=== PATIENT | male | born 1950 | race Hispanic/Latino ===

== ENCOUNTER 2017-04-04 07:57 | Emergency (ER) | payer OTHER ==
[2017-04-04] MEDS ORDERED: IBUPROFEN 200 MG TAB PO ONE (08:02)
[2017-04-04] MEDS ORDERED: CYCLOBENZAPRINE HCL 10 MG TAB PO ONE (08:02)
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
[2017-04-04 08:11] VITALS: TEMP 97.3
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
[2017-04-04 09:05] VITALS: BP 138/84; O2SAT 96
== END 2017-04-04 08:59 | disposition home or self-care (01) ==
LOC: ER 07:57
DX: S16.1XXA Strain of muscle, fascia and tendon at neck level, initial encounter (principal); S00.03XA Contusion of scalp, initial encounter; V43.62XA Car passenger injured in collision with other type car in traffic accident, initial encounter; Y92.410 Unspecified street and highway as the place of occurrence of the external cause

== ENCOUNTER 2020-03-26 11:46 | Emergency (ER) | payer MEDICARE, OTHER ==
--- NOTE | 2020-03-26 12:56 | RAD ---
EXAM DESCRIPTION: Chest,1 View CLINICAL HISTORY: 69 years Male SOB, COVID exposure COMPARISON: None TECHNIQUE: AP view of the chest was obtained. FINDINGS: Cardiac silhouette is mildly enlarged. Central vessels are mildly increased. Patient is lordotic in positioning. Infrahilar airspace opacities bilaterally left greater than right. No pleural effusions bilaterally. No pneumothorax. IMPRESSION: Mildly enlarged heart with associated central congestion. Infiltrate and atelectatic change infrahilar regions bilaterally left greater than right. Electronically signed by: Ynes Li MD 03/26/2020 12:55 PM CDT
[2020-03-26 13:18] VITALS: TEMP 98
--- NOTE | 2020-03-26 13:34 | ED.PDOC ---
History of Present Illness - General Chief Complaint: Respiratory Problem Stated Complaint: Cough, SOB, ASHRAF, chest tightness Time Seen by Provider: 03/26/20 12:06 Source: patient, RN notes reviewed, Vital Signs reviewed, family Exam Limitations: language barrier, other - Son is a patient in the emergency department in the room, he was able to interpret - History of Present Illness Comments: This is a 69-year-old male with history of hypertension, colon cancer, CAD with stents, presenting to the emergency department with approximately 12 days of intermittent fever, body aches, decreased appetite. He reports mild cough and shortness of breath. No chest pain. No vomiting/diarrhea. He lives with his son, who recently tested positive for COVID-19 in the emergency department. He has not been tested for the symptoms. He has not taken anything for his symptoms. Allergies/Adverse Reactions: Allergies NO KNOWN ALLERGY Allergy (Verified 03/26/20 12:31) Home Medications: Ambulatory Orders Cyclobenzaprine HCl 5 mg PO Q8H PRN #15 tab 04/04/17 Ibuprofen 800 mg PO Q8H PRN #20 tab 04/04/17 Albuterol Inhaler [Ventolin Hfa Inhaler] 2 - 4 puff IN Q4H PRN #1 inh 03/26/20 Ondansetron Odt [Zofran ODT] 4 - 8 mg PO Q30MIN PRN #12 tab 03/26/20 guaiFENesin W/CODEINE LIQ [Robitussin AC] 5 - 10 ml PO Q6H PRN #120 ml 03/26/20 Review of Systems - Review of Systems Constitutional: States: chills, fever EENTM: Denies: ear pain, nose pain, throat pain, mouth pain Respiratory: States: cough, short of breath. Denies: wheezing Cardiology: Denies: chest pain, edema, syncope Gastrointestinal/Abdominal: Denies: abdominal pain, diarrhea, nausea, vomiting Genitourinary: Denies: dysuria, hematuria Musculoskeletal: Denies: joint pain, joint swelling, muscle stiffness Skin: Denies: change in color, lumps, rash Neurological: Denies: headache, numbness, tingling, weakness Endocrine: States: no symptoms reported Hematologic/Lymphatic: States: no symptoms reported Past Medical History (General) - Patient Medical History Hx Seizures: No Hx Stroke: No Hx Dementia: No Hx Asthma: No Hx of COPD: No Hx Cardiac Disorders: Yes - stents Hx Congestive Heart Failure: No Hx Pacemaker: No Hx Hypertension: Yes Hx Diabetes: No Hx Gastroesophageal Reflux: Yes Hx Cancer: Yes - colon Surgical History: cancer surgery, other - Vaccination History Hx Influenza Vaccination: No - Social History Hx Tobacco Use: No Hx Alcohol Use: Yes Hx Substance Use: No Hx Substance Use Treatment: No Hx Depression: No - Female History Patient is a Female of Child Bearing Age (10 -59 yrs old): No Patient : No Family Medical History - Family History Mother Family History: Unknown Physical Exam - Physical Exam General Appearance: Alert, Comfortable ENT Exam: normal ENT inspection, hearing grossly normal Neck: non-tender, full range of motion, supple, normal inspection Respiratory: chest non-tender, lungs clear, normal breath sounds, no respiratory distress Cardiovascular/Chest: normal peripheral pulses, regular rate, rhythm, no edema, no gallop, no JVD, no murmur Gastrointestinal/Abdominal: non tender, soft Extremity: normal range of motion, non-tender, normal inspection Neurologic: no motor/sensory deficits, alert, normal mood/affect, oriented x 3 Skin Exam: normal color, warm/dry Progress - Progress Progress: 03/26/20 14:35 Rechecked. Discussed lab and x-ray findings. His O2 sats remained normal, no respiratory distress. No indication for admission at this time. Will treat symptomatically. Strict warnings given to patient and son to return the emergency immediately for worsening shortness of breath, changes in mental status, intractable vomiting, or any other concerns DDx: COVID-19, pneumonia, ACS, CHF, MDM: Patient presenting with fever, poor appetite, chest pain, shortness of breath. He has had close home contact with known COVID-19 disease. He tested positive for COVID-19 today. His labs today are reassuring, O2 sats are normal chest x- ray is clear. No indication for admission at this time. Will discharge home with symptom control. I provided a prescription for a pulse oximeter for him to use at home. Recommended he return to emergency room for sats less than 90%, worsening shortness of breath, changes in mental status, intractable vomiting, or any other concerns. Bill Tesfaye DO [facility] #559 - Results/Orders Results/Orders: 03/26/20 12:30 EKG STAT Pulse Ox, Continuous Monitoring STAT Laboratory Results - last 24 hr 03/26/20 03/26/20 03/26/20 12:40 12:40 12:40 WBC RBC Hgb Hct MCV MCH MCHC RDW Plt Count MPV Absolute Neuts (auto) Absolute Lymphs (auto) Absolute Monos (auto) Absolute Eos (auto) Absolute Basos (auto) Neutrophils % Lymphocytes % Monocytes % Eosinophils % Basophils % PTT (SP) 28.1 D-Dimer, Quantitative 1340.0 H* Sodium 133 L Potassium 3.8 Chloride 95 L Carbon Dioxide 25 Anion Gap 16.8 BUN 14 Creatinine 0.83 BUN/Creatinine Ratio 16.9 Random Glucose 110 H Serum Osmolality 267.5 L Calcium 8.8 Total Bilirubin 0.7 AST 29 ALT 26 Alkaline Phosphatase 45 LD Total 166 Troponin I 0.03 C-Reactive Protein 6.1 H B-Natriuretic Peptide 51.1 Serum Total Protein 7.4 Albumin 3.8 Globulin 3.6 H Albumin/Globulin Ratio 1.1 03/26/20 12:51 WBC 5.1 RBC 4.70 Hgb 14.9 Hct 43.3 MCV 92.3 MCH 31.7 H MCHC 34.3 RDW 12.2 Plt Count 181 MPV 8.2 Absolute Neuts (auto) 3.30 Absolute Lymphs (auto) 1.30 Absolute Monos (auto) 0.40 Absolute Eos (auto) 0.10 Absolute Basos (auto) 0.00 Neutrophils % 64.8 Lymphocytes % 25.1 Monocytes % 8.1 Eosinophils % 1.2 Basophils % 0.8 PTT (SP) D-Dimer, Quantitative Sodium Potassium Chloride Carbon Dioxide Anion Gap BUN Creatinine BUN/Creatinine Ratio Random Glucose Serum Osmolality Calcium Total Bilirubin AST ALT Alkaline Phosphatase LD Total Troponin I C-Reactive Protein B-Natriuretic Peptide Serum Total Protein Albumin Globulin Albumin/Globulin Ratio EKG reviewed personally by me at 1222. Normal sinus rhythm, rate of 67, left axis, normal intervals, nonspecific T wave changes. EXAM DESCRIPTION: Chest,1 View CLINICAL HISTORY: 69 years Male SOB, COVID exposure COMPARISON: None TECHNIQUE: AP view of the chest was obtained. FINDINGS: Cardiac silhouette is mildly enlarged. Central vessels are mildly increased. Patient is lordotic in positioning. Infrahilar airspace opacities bilaterally left greater than right. No pleural effusions bilaterally. No pneumothorax. IMPRESSION: Mildly enlarged heart with associated central congestion. Infiltrate and atelectatic change infrahilar regions bilaterally left greater than right. Electronically signed by: Ynes Li MD 03/26/2020 12:55 PM Departure - Departure Clinical Impression: Febrile illness, acute, Malaise, COVID-19 virus detected Disposition: Discharge to Home or Self Care Condition: Good Departure Forms: ED Discharge - Pt. Copy, Patient Portal Self Enrollment Instructions: Coronavirus Disease 2019 (COVID-19) Prescriptions: Ondansetron Odt [Zofran ODT] 4 - 8 mg PO Q30MIN PRN #12 tab PRN Reason: Nausea guaiFENesin W/CODEINE LIQ [Robitussin AC] 5 - 10 ml PO Q6H PRN #120 ml PRN Reason: Cough Albuterol Inhaler [Ventolin Hfa Inhaler] 2 - 4 puff IN Q4H PRN #1 inh PRN Reason: Shortness Of Breath Home Medications: Ambulatory Orders Cyclobenzaprine HCl 5 mg PO Q8H PRN #15 tab 04/04/17 Ibuprofen 800 mg PO Q8H PRN #20 tab 04/04/17 Albuterol Inhaler [Ventolin Hfa Inhaler] 2 - 4 puff IN Q4H PRN #1 inh 03/26/20 Ondansetron Odt [Zofran ODT] 4 - 8 mg PO Q30MIN PRN #12 tab 03/26/20 guaiFENesin W/CODEINE LIQ [Robitussin AC] 5 - 10 ml PO Q6H PRN #120 ml 03/26/20 Additional Instructions: Return to the emergency room immediately for worsening shortness of breath, intractable vomiting, changes in mental status, chest pain, leg swelling, or any other concerns. Follow-up with your primary doctor in 3 to 5 days for recheck. Print Language: SPA
[2020-03-26 14:33] VITALS: BP 158/85; O2SAT 93
== END 2020-03-26 14:25 | disposition home or self-care (01) ==
LOC: ER 11:46
DX: U07.1 COVID-19 (principal); R53.81 Other malaise; I10 Essential (primary) hypertension; K21.9 Gastro-esophageal reflux disease without esophagitis; Z85.038 Personal history of other malignant neoplasm of large intestine; Z79.899 Other long term (current) drug therapy

== ENCOUNTER 2020-04-02 11:35 | Inpatient (IN) | payer MEDICARE ==
--- NOTE | 2020-04-02 11:55 | ED.PDOC ---
History of Present Illness - General Chief Complaint: Respiratory Problem Time Seen by Provider: 04/02/20 11:38 Source: patient, RN notes reviewed, Vital Signs reviewed Exam Limitations: language barrier - History of Present Illness Initial Comments: This is a 69-year-old Sudanese-speaking male presenting to the emergency department with shortness of breath, cough. He tested positive for COVID-19 approximately 2 weeks ago, and was seen in the emergency department 1 week ago. He says the cough and shortness of breath have gotten progressively worse. On his ER visit last week, his O2 sats were acceptable and ambulating sats were unchanged. He was discharged home with cough medication. He states the medication did not help much with the cough. He denies any chest pain, leg swelling, syncope. He does report intermittent fevers. His son was recently admitted to the hospital for COVID-19 and hypoxia. Allergies/Adverse Reactions: Allergies NO KNOWN ALLERGY Allergy (Verified 04/02/20 12:19) Home Medications: Ambulatory Orders Cyclobenzaprine HCl 5 mg PO Q8H PRN #15 tab 04/04/17 Ibuprofen 800 mg PO Q8H PRN #20 tab 04/04/17 Albuterol Inhaler [Ventolin Hfa Inhaler] 2 - 4 puff IN Q4H PRN #1 inh 03/26/20 Ondansetron Odt [Zofran ODT] 4 - 8 mg PO Q30MIN PRN #12 tab 03/26/20 guaiFENesin W/CODEINE LIQ [Robitussin AC] 5 - 10 ml PO Q6H PRN #120 ml 03/26/20 Review of Systems - Review of Systems Constitutional: States: chills, fever, malaise EENTM: States: nose congestion, throat pain. Denies: ear pain, nose pain Respiratory: States: cough, short of breath. Denies: wheezing Cardiology: Denies: chest pain, palpitations, syncope Gastrointestinal/Abdominal: Denies: abdominal pain, diarrhea, nausea, vomiting Musculoskeletal: Denies: back pain Skin: Denies: dryness, lesions, rash Neurological: States: headache. Denies: tingling, weakness Endocrine: States: no symptoms reported Hematologic/Lymphatic: States: no symptoms reported Past Medical History (General) - Patient Medical History Hx Seizures: No Hx Stroke: No Hx Dementia: No Hx Asthma: No Hx of COPD: No Hx Cardiac Disorders: Yes - stents Hx Congestive Heart Failure: No Hx Pacemaker: No Hx Hypertension: Yes Hx Diabetes: No Hx Gastroesophageal Reflux: Yes Hx Cancer: Yes - colon - Vaccination History Hx Influenza Vaccination: No - Social History Hx Tobacco Use: No Hx Alcohol Use: Yes Hx Substance Use: No Hx Substance Use Treatment: No Hx Depression: No - Female History Patient : No Family Medical History - Family History Mother Family History: Unknown Physical Exam - Physical Exam General Appearance: Alert, No apparent distress ENT Exam: hearing grossly normal, TMs normal Neck: non-tender, full range of motion, supple Respiratory: lungs clear, normal breath sounds, no respiratory distress, no accessory muscle use, other - Mild tachypnea Cardiovascular/Chest: normal peripheral pulses, regular rate, rhythm, no edema, no gallop, no JVD Gastrointestinal/Abdominal: non tender, soft Extremity: normal range of motion, non-tender, normal inspection Neurologic: no motor/sensory deficits, alert, normal mood/affect, oriented x 3 Skin Exam: normal color, warm/dry Progress - Progress Progress: 04/02/20 12:27 Discussed with Levy Trimble, THERESA. Reviewed labs, chest x-ray findings. He requested CTA of the chest as well as respiratory viral panel. Will call back once results returned 04/02/20 14:[address] report with Levy Trimble. Agrees with plan for admission.Family updated on plan for admission. DDx: Pneumonia, COVID-19, respiratory failure, sepsis, congestive heart failure MDM: Patient presenting to the emergency department with increasing cough, shortness of breath, O2 sats in the mid 80s on room air on arrival. He tested positive for COVID-19 last week, and has had a family member that was recently admitted for COVID-19. He does not use oxygen at home. He does have a history of hypertension, hyperlipidemia, no history of diabetes. I did give him a dose of dexamethasone in the emergency department. Due to acute respiratory failure, will admit. Bill Tesfaye DO [facility] #559 - Results/Orders Results/Orders: EKG reviewed personally by me at 11:55 AM. Normal sinus rhythm, rate of 69, left axis, normal intervals, nonspecific T wave changes EXAM DESCRIPTION: Chest,1 View 04/02/2020 12:20 PM CDT CLINICAL HISTORY: 69 years, Male, SOB, cough, known COVID-19 infection COMPARISON: 03/26/2020 FINDINGS: Single view of the chest was obtained portable. Prior films were compared. There has been interval development of subpleural groundglass opacity/linear densities along the mid left lung zone and right lower lung zones suspicious for viral/Covid 19 pneumonia, new in comparison with prior study. The cardiomediastinal silhouette demonstrate to be unremarkable. The heart is not enlarged. The thoracic aorta demonstrate to be within normal limits. Costophrenic there are no pleural effusions. The rest of the soft tissue and bony structures demonstrate to be unremarkable. IMPRESSION: INTERVAL DEVELOPMENT BILATERAL PERIPHERAL GROUNDGLASS OPACITIES WITHIN BOTH LUNGS, SUSPICIOUS FOR COVID-19 PNEUMONIA. Electronically signed by: Kentrell Ambrose MD 04/02/2020 12:21 PM EXAM DESCRIPTION: CTA Chest 04/02/2020 1:30 PM CDT CLINICAL HISTORY: 69 years, Male, Known COVID, new infiltrate on CXR COMPARISON: Recent chest x-ray performed 04/02/2020. PROCEDURE: Multiple transaxial tomograms of the chest were obtained from the lung apices through the lung bases utilizing 2.5 mm slice thickness at 2.5 mm interval reconstruction after the administration of large bolus of IV contrast complete opacification of the pulmonary arteries. Subsequent maximum intensity projection images were generated in the coronal and sagittal plane for review. An individualized dose optimization technique, Automated Exposure Control, was utilized for the performed procedure. FINDINGS: Several of the images are compromised by motion artifact limiting diagnostic value. The lungs parenchyma demonstrate bilateral subpleural upper and right lower lobe lobe peripheral groundglass opacities, with interlobular septal thickening-crazy paving, suspicious for COVID-19 pneumonia. No significant masses nodules and or consolidations are identified. The trachea mainstem bronchus demonstrate to be normal. There is no significant pericardial or pleural effusions. The thoracic aorta demonstrate to be within normal limits. There is very minimal intimal aortic arch calcification. No significant evidence for thoracic aortic dissection. The heart is normal in size. No evidence for right ventricular strain. There are coronary artery calcifications. There is no significant mediastinal and/or hilar lymphadenopathy. The axillary regions demonstrate to be clear. Subclinical mediastinal lymph nodes are noted within the AP window and precarinal space. Pulmonary arteries demonstrate to be normal, no intraluminal defect are seen that would suggest pulmonary embolus. The bone windows demonstrate no significant skeletal lesions. The visualized portions of the upper abdomen demonstrate to be within normal limits. IMPRESSION: NO EVIDENCE FOR PULMONARY EMBOLUS AND/OR SIGNIFICANT EVIDENCE FOR THORACIC AORTIC THORACIC DISSECTION. 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 FOCAL AREAS OF SUBPLEURAL GROUNDGLASS OPACITIES BILATERAL UPPER AND LOWER LUNGS WITH CRAZY PAVING, IMAGING FEATURES OF COVID-19 PNEUMONIA ARE PRESENT. OTHER PROCESSES SUCH INFLUENZA PNEUMONIA AND ORGANIZING PNEUMONIA, CAN be SEEN WITH DRUG TOXICITY AND CONNECTIVE TISSUE DISEASE, CAN CAUSE A SIMILAR IMAGING PATTERN. (REFERENCE: [email or web address]). Electronically signed by: Kentrell Ambrose MD 04/02/2020 1:36 PM CDT 04/02/20 11:44 IV Care:Saline Lock per Protoc STAT Isolation:Airborne ONCE Telemetry STAT 04/02/20 11:45 EKG STAT Pulse Ox, Continuous Monitoring STAT 04/02/20 11:58 RAPID SARS-CoV-2 RNA Stat 04/02/20 12:42 BLOOD CULTURE Stat RESPIRATORY PANEL 2 Stat 04/03/20 11:45 Pulse Ox, Continuous Monitoring STAT 04/04/20 11:45 Pulse Ox, Continuous Monitoring STAT Laboratory Results - last 24 hr 04/02/20 04/02/20 04/02/20 12:00 12:00 12:00 WBC 6.8 RBC 4.25 L Hgb 13.5 L Hct 38.7 L MCV 90.9 MCH 31.7 H MCHC 34.9 RDW 12.5 Plt Count 382 MPV 7.7 Absolute Neuts (auto) 5.10 Absolute Lymphs (auto) 0.80 L Absolute Monos (auto) 0.80 Absolute Eos (auto) 0.10 Absolute Basos (auto) 0.10 Neutrophils % 73.9 Lymphocytes % 11.7 L Monocytes % 12.0 H Eosinophils % 1.6 Basophils % 0.8 PTT (SP) 24.8 D-Dimer, Quantitative > 5000.0 H* Sodium 131 L Potassium 3.6 Chloride 96 L Carbon Dioxide 23 Anion Gap 15.6 BUN 16 Creatinine 0.70 BUN/Creatinine Ratio 22.9 H Random Glucose 122 H Serum Osmolality 265.2 L Lactic Acid Calcium 8.8 Magnesium 1.9 Total Bilirubin 0.9 AST 140 H ALT 198 H Alkaline Phosphatase 61 LD Total 224 H D Creatine Kinase 34 L Troponin I C-Reactive Protein 14.7 H* B-Natriuretic Peptide 119.0 H Serum Total Protein 7.3 Albumin 3.2 Globulin 4.1 H Albumin/Globulin Ratio 0.8 L 04/02/20 04/02/20 12:00 12:42 WBC RBC Hgb Hct MCV MCH MCHC RDW Plt Count MPV Absolute Neuts (auto) Absolute Lymphs (auto) Absolute Monos (auto) Absolute Eos (auto) Absolute Basos (auto) Neutrophils % Lymphocytes % Monocytes % Eosinophils % Basophils % PTT (SP) D-Dimer, Quantitative Sodium Potassium Chloride Carbon Dioxide Anion Gap BUN Creatinine BUN/Creatinine Ratio Random Glucose Serum Osmolality Lactic Acid 1.2 Calcium Magnesium Total Bilirubin AST ALT Alkaline Phosphatase LD Total Creatine Kinase Troponin I 0.03 C-Reactive Protein B-Natriuretic Peptide Serum Total Protein Albumin Globulin Albumin/Globulin Ratio Departure - Departure Clinical Impression: Acute respiratory failure with hypoxia, Pneumonia due to 2019 novel coronavirus Time of Disposition: 12:38 Disposition: Admit Patient Condition: Fair Departure Forms: ED Discharge - Pt. Copy, Patient Portal Self Enrollment Home Medications: Ambulatory Orders Cyclobenzaprine HCl 5 mg PO Q8H PRN #15 tab 04/04/17 Ibuprofen 800 mg PO Q8H PRN #20 tab 04/04/17 Albuterol Inhaler [Ventolin Hfa Inhaler] 2 - 4 puff IN Q4H PRN #1 inh 03/26/20 Ondansetron Odt [Zofran ODT] 4 - 8 mg PO Q30MIN PRN #12 tab 03/26/20 guaiFENesin W/CODEINE LIQ [Robitussin AC] 5 - 10 ml PO Q6H PRN #120 ml 03/26/20 Decision To Admit - Decistion To Admit Decision to Admit Reason: Admit from ER Decision to Admit Date: 04/02/20 Decision to Admit Time: 12:35
[2020-04-02] MEDS ORDERED: levoFLOXacin 750MG IV 750 MG in PREMIX BAG 1 BAG IVPB ONE (12:20)
--- NOTE | 2020-04-02 12:22 | RAD ---
EXAM DESCRIPTION: Chest,1 View 04/02/2020 12:20 PM CDT CLINICAL HISTORY: 69 years, Male, SOB, cough, known COVID-19 infection COMPARISON: 03/26/2020 FINDINGS: Single view of the chest was obtained portable. Prior films were compared. There has been interval development of subpleural groundglass opacity/linear densities along the mid left lung zone and right lower lung zones suspicious for viral/Covid 19 pneumonia, new in comparison with prior study. The cardiomediastinal silhouette demonstrate to be unremarkable. The heart is not enlarged. The thoracic aorta demonstrate to be within normal limits. Costophrenic there are no pleural effusions. The rest of the soft tissue and bony structures demonstrate to be unremarkable. IMPRESSION: INTERVAL DEVELOPMENT BILATERAL PERIPHERAL GROUNDGLASS OPACITIES WITHIN BOTH LUNGS, SUSPICIOUS FOR COVID-19 PNEUMONIA. Electronically signed by: Kentrell Ambrose MD 04/02/2020 12:21 PM CDT
[2020-04-02] MEDS ORDERED: DEXAMETHASONE INJ 10 MG/ML VIAL IV ONE (12:23)
--- NOTE | 2020-04-02 13:38 | CT ---
EXAM DESCRIPTION: CTA Chest 04/02/2020 1:30 PM CDT CLINICAL HISTORY: 69 years, Male, Known COVID, new infiltrate on CXR COMPARISON: Recent chest x-ray performed 04/02/2020. PROCEDURE: Multiple transaxial tomograms of the chest were obtained from the lung apices through the lung bases utilizing 2.5 mm slice thickness at 2.5 mm interval reconstruction after the administration of large bolus of IV contrast complete opacification of the pulmonary arteries. Subsequent maximum intensity projection images were generated in the coronal and sagittal plane for review. An individualized dose optimization technique, Automated Exposure Control, was utilized for the performed procedure. FINDINGS: Several of the images are compromised by motion artifact limiting diagnostic value. The lungs parenchyma demonstrate bilateral subpleural upper and right lower lobe lobe peripheral groundglass opacities, with interlobular septal thickening-crazy paving, suspicious for COVID-19 pneumonia. No significant masses nodules and or consolidations are identified. The trachea mainstem bronchus demonstrate to be normal. There is no significant pericardial or pleural effusions. The thoracic aorta demonstrate to be within normal limits. There is very minimal intimal aortic arch calcification. No significant evidence for thoracic aortic dissection. The heart is normal in size. No evidence for right ventricular strain. There are coronary artery calcifications. There is no significant mediastinal and/or hilar lymphadenopathy. The axillary regions demonstrate to be clear. Subclinical mediastinal lymph nodes are noted within the AP window and precarinal space. Pulmonary arteries demonstrate to be normal, no intraluminal defect are seen that would suggest pulmonary embolus. The bone windows demonstrate no significant skeletal lesions. The visualized portions of the upper abdomen demonstrate to be within normal limits. IMPRESSION: NO EVIDENCE FOR PULMONARY EMBOLUS AND/OR SIGNIFICANT EVIDENCE FOR THORACIC AORTIC THORACIC DISSECTION. 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 FOCAL AREAS OF SUBPLEURAL GROUNDGLASS OPACITIES BILATERAL UPPER AND LOWER LUNGS WITH CRAZY PAVING, IMAGING FEATURES OF COVID-19 PNEUMONIA ARE PRESENT. OTHER PROCESSES SUCH INFLUENZA PNEUMONIA AND ORGANIZING PNEUMONIA, CAN be SEEN WITH DRUG TOXICITY AND CONNECTIVE TISSUE DISEASE, CAN CAUSE A SIMILAR IMAGING PATTERN. (REFERENCE: [email or web address]). Electronically signed by: Kentrell Ambrose MD 04/02/2020 1:36 PM CDT
--- NOTE | 2020-04-02 16:04 | HP ---
SUPERVISING PHYSICIAN: Perez Zelaya MD CHIEF COMPLAINT: Shortness of breath and cough. HISTORY OF PRESENT ILLNESS: Mr. Hernández is a 69-year-old Ukbkzrm-[id number] male patient who presented to the Emergency Room last night with some shortness of breath and a cough. He had tested COVID positive two weeks previously in the Emergency Room and was treated at home. He endorses over the last week which cough has gotten worse including shortness of breath. His initial Emergency Room visit last week showed his O2 saturations were acceptable as well as ambulation was unchanged. He was discharged home with some cough medicine. He denies any chest pains, swelling, syncope. He does report some intermittent fevers as well as his son was admitted to the hospital here with COVID pneumonitis and hypoxia. His initial workup in the Emergency Room showed his white count was 6,800, hemoglobin 13.5, hematocrit 38.7, lymphocytes low, no left shift. Coagulation studies showed D-dimer greater than 5,000. PTT 24.8. Chemistries showed sodium 131 with normal electrolytes. Otherwise, creatinine was 0.7. Liver functions show did elevation of AST and ALT, but normal bilirubin. LDH was elevated. Troponin within normal limits. C-reactive protein 14.7. BNP slightly elevated at 119. Respiratory panel was completed showed he was negative for all viral and bacterial targets as tested including COVID and influenza. Chest x-ray in the ER showed interval development since 03/26/20 of bilateral perihilar ground glass opacities in both lungs suspicious for COVID pneumonia. Due to the elevated D-dimer, he had a CT of the chest with no evidence of pulmonary embolus as noted. Again, there was note of focal areas of ground glass opacities, bilateral upper and lower lungs. His vital signs initially in the Emergency Room showed saturation 86% on room air, blood pressure stable at 142/79, heart rate 75, afebrile at 98.6. Given the findings on CT of the chest indicating bilateral pneumonia and recent COVID-19 infection, there is concern for COVID pneumonia now with the patient showing some hypoxia on room air. Therefore, he is going to be admitted for further treatment and evaluation. He was admitted in stable condition. PAST MEDICAL HISTORY: 1. Hypertension. 2. Cardiovascular disease with previous stents. 3. Gastroesophageal reflux disease. PAST SURGICAL HISTORY: No history of surgeries. HOME MEDICATIONS: 1. Simvastatin 40 mg daily. 2. Aspirin 81 mg daily. 3. Lisinopril 20 mg daily. 4. Atenolol 50 mg daily. ALLERGIES: NO KNOWN DRUG ALLERGIES. FAMILY HISTORY: Noncontributory. SOCIAL HISTORY: The patient is a nonsmoker, he does not drink alcohol, he does not use illicit drugs. He lives by himself in [place], [place]. REVIEW OF SYSTEMS: CONSTITUTIONAL: Positive for general malaise, fevers and chills. HEENT: Positive for nasal congestion and sore throat, but denies ear pain, earaches, vision changes. RESPIRATORY: As noted in history of present illness, increasing shortness of breath with cough. Denies wheezing. CARDIOVASCULAR: Negative for chest pain, palpitations or syncopal episodes. GASTROINTESTINAL: Negative for nausea, vomiting, diarrhea, constipation or abdominal pain. GENITOURINARY: Negative for dysuria, hematuria, polyuria. MUSCULOSKELETAL: Negative for back pain, arthralgias. SKIN: Negative for lesions, rashes, moles or unexplained changes. NEUROLOGIC: Negative for tingling, weakness, paresthesias. He does have a headache. No reported ataxia or seizure disorder. HEMATOLOGIC: Negative for easy bruising, unexplained bleeding or transfusion reactions. PHYSICAL EXAMINATION: VITAL SIGNS: On admission to the Floor, temperature 97.6, pulse 66, blood pressure 113/76, respirations 18, saturation 93% to 96% on 2 liters nasal cannula at rest. GENERAL: The patient is resting comfortably in no obvious acute distress. HEENT: Tympanic membranes clear bilaterally. Oropharynx is pink, moist without any lesions. NECK: Supple, nontender with full range of motion. No jugular venous distention noted. RESPIRATORY: He is mildly tachypneic, but lung sounds sounds are fairly clear, just diminished towards the bases. I do not hear any obvious rhonchi, wheezes or rales. CARDIOVASCULAR: Regular rate and rhythm without any appreciable murmurs, gallops, or rubs. No JVD appreciated. ABDOMEN: Soft, nontender. Positive bowel sounds. EXTREMITIES: There is no cyanosis, clubbing or edema. NEUROLOGIC: Cranial nerves II-XII are grossly intact. The patient is alert and oriented times three. SKIN: Warm, pink and dry. LABORATORY: CBC shows white count 6,800, hemoglobin 13.5, hematocrit 38.7, platelet count 382,000, differential shows no left shift with low lymphocyte count. Coagulation studies showed D-dimer greater than 5,000 with PTT 24.8, fibrinogen pending. Chemistry showed sodium 131, potassium 3.6, creatinine 0.7, BUN normal at 16. Hemoglobin A1c 6.4. Glucose 122. Lactic acid 1.2. Liver functions within normal limits on bilirubin. AST was elevated at 140, ALT at 198. LDH 224. Troponin 0.03. C-reactive protein elevated at 14.7. BNP slightly elevated at 119. MICROBIOLOGY: Blood cultures pending. Respiratory panel negative for all bacterial and viral targets as tested including COVID and influenza. RADIOLOGY: ASSESSMENT: 1. Bilateral pneumonia secondary to COVID pneumonitis with hypoxia. 2. Elevated liver enzymes, etiology uncertain. 3. History of gastroesophageal reflux disease. 4. History of hypertension. 5. History of cardiovascular disease with previous stent placements. PLAN: Mr. Hernández is going to be admitted for treatment of underlying pneumonia secondary to a previous COVID infection. He was negative for COVID on this testing. He will be on DVT prophylaxis given his D-dimer was greater than 5,000 with Lovenox 80 mg q.12h. He will be on Rocephin, azithromycin, Decadron and Remdesivir as well as aggressive pulmonary hygiene and breathing treatments with inhaler with albuterol. He will be on Align, Protonix. I would anticipate his length of stay to be at least 2 to 3 days. Until the patient can transition to outpatient management, we will continue to monitor and treat as needed. #[id number] [facility]
[2020-04-02] MEDS ORDERED: MAGNESIUM HYDROXIDE 30 ML UD PO PRN (16:53)
[2020-04-02] MEDS ORDERED: ALBUTEROL SULFATE 2.5 MG/3 ML VIAL NEB PRN (16:53)
[2020-04-02] MEDS ORDERED: IBUPROFEN 400 MG TAB PO PRN (16:53)
[2020-04-02] MEDS ORDERED: ONDANSETRON INJ 4 MG/2 ML VIAL IV PRN (16:53)
[2020-04-02] MEDS ORDERED: ENOXAPARIN SODIUM 40 MG/0.4 ML SYG SUBCU ONE (17:11)
[2020-04-02] MEDS ORDERED: AZITHROMYCIN IV 500 MG VIAL IVPB ONE (17:11)
[2020-04-02] MEDS ORDERED: SODIUM CHLORIDE 0.9% 250ML 250 ML ONE (17:11)
[2020-04-02] MEDS ORDERED: SODIUM CHL 0.9% 50ML MIN-BAG+ 50 ML IVPB ONE (17:11)
[2020-04-02] MEDS ORDERED: cefTRIAXone SODIUM 1 GM VIAL ONE (17:11)
[2020-04-02] MEDS: cefTRIAXone SODIUM 1 GM in SODIUM CHL 0.9% 50ML MIN-BAG+ 50 ML IVPB SCH (17:14)
[2020-04-02] MEDS: AZITHROMYCIN IV 500 MG in SODIUM CHLORIDE 0.9% 250ML 250 ML IVPB SCH (17:16)
[2020-04-02] MEDS: ENOXAPARIN SODIUM 80 MG/0.8 ML SYG SUBCU SCH (17:19)
[2020-04-02] MEDS: BUDESONIDE NEBS 0.5 MG/2 ML INH NEB SCH (20:50)
[2020-04-02] MEDS: IPRATROPIUM/ALBUTEROL 3 ML VIAL INH SCH (20:50)
[2020-04-03] MEDS: ENOXAPARIN SODIUM 80 MG/0.8 ML SYG SUBCU SCH ×2 (04:41→16:56)
[2020-04-03] MEDS: IV SET AND CAP CHANGE INJ INJ SCH (04:42)
[2020-04-03] MEDS: PANTOPRAZOLE SODIUM IV 40 MG VIAL IV SCH (06:03)
[2020-04-03] MEDS: BUDESONIDE NEBS 0.5 MG/2 ML INH NEB SCH ×2 (07:49→20:34)
[2020-04-03] MEDS: IPRATROPIUM/ALBUTEROL 3 ML VIAL INH SCH ×4 (07:49→20:34)
[2020-04-03] MEDS ORDERED: DEXAMETHASONE INJ 10 MG/ML VIAL ONE (09:12)
[2020-04-03] MEDS ORDERED: ENOXAPARIN SODIUM 80 MG/0.8 ML SYG SUBCU ONE ×2 (09:12→16:42)
[2020-04-03] MEDS ORDERED: LISINOPRIL 10 MG TAB ONE (09:13)
[2020-04-03] MEDS ORDERED: ATENOLOL 25 MG TAB ONE (09:13)
[2020-04-03] MEDS: NON-FORMULARY MEDICATION 1 EA MIS (Atenolol [Tenormin] 50 MG) PO SCH (09:47)
[2020-04-03] MEDS: DEXAMETHASONE INJ 4 MG/ML VIAL IV SCH (09:47)
[2020-04-03] MEDS: ASPIRIN (CHEWABLE) 81 MG TAB PO SCH (09:48)
[2020-04-03] MEDS: BIFIDOBACTERIUM INFANTIS 4 MG CAP PO SCH (09:48)
[2020-04-03] MEDS: NON-FORMULARY MEDICATION 1 EA MIS (Lisinopril [Lisinopril] 20 MG) PO SCH (09:48)
[2020-04-03] MEDS: SIMVASTATIN 20 MG TAB PO SCH (09:50)
--- NOTE | 2020-04-03 11:24 | RAD ---
PROCEDURE:XR CHEST 1 VIEW HISTORY:Covid PNA COMPARISON: April 02, 2020 FINDINGS: The heart appears unremarkable. Again noted is the infiltrate within the right lower lobe and linear patchy infiltrate within the left mid lung. There is some obturation of the left hemidiaphragm likely secondary to small pleural effusion. The remainder the lung parenchyma is clear. The osseous structures and soft tissues are normal. IMPRESSION: Stable bilateral pulmonary infiltrates with developing small left-sided effusion Electronically signed by: Flaco Morales MD 04/03/2020 11:23 AM CDT
[2020-04-03] MEDS ORDERED: IPRATROPIUM/ALBUTEROL 3 ML VIAL NEB ONE ×3 (12:42→19:48)
[2020-04-03] MEDS ORDERED: cefTRIAXone SODIUM 1 GM VIAL ONE (16:42)
[2020-04-03] MEDS ORDERED: AZITHROMYCIN IV 500 MG VIAL IVPB ONE (16:42)
[2020-04-03] MEDS ORDERED: SODIUM CHL 0.9% 50ML MIN-BAG+ 50 ML IVPB ONE (16:43)
[2020-04-03] MEDS ORDERED: SODIUM CHLORIDE 0.9% 250ML 250 ML ONE (16:43)
[2020-04-03] MEDS: AZITHROMYCIN IV 500 MG in SODIUM CHLORIDE 0.9% 250ML 250 ML IVPB SCH (16:57)
[2020-04-03] MEDS: cefTRIAXone SODIUM 1 GM in SODIUM CHL 0.9% 50ML MIN-BAG+ 50 ML IVPB SCH (16:57)
[2020-04-03] MEDS ORDERED: MAGNESIUM HYDROXIDE 30 ML UD ONE (17:42)
[2020-04-03] MEDS ORDERED: BUDESONIDE NEBS 0.5 MG/2 ML INH NEB ONE (19:49)
[2020-04-04] MEDS ORDERED: PANTOPRAZOLE SODIUM IV 40 MG VIAL ONE (04:16)
[2020-04-04] MEDS ORDERED: ENOXAPARIN SODIUM 80 MG/0.8 ML SYG SUBCU ONE (04:16)
[2020-04-04] MEDS: ENOXAPARIN SODIUM 80 MG/0.8 ML SYG SUBCU SCH ×2 (04:49→16:41)
[2020-04-04] MEDS: PANTOPRAZOLE SODIUM IV 40 MG VIAL IV SCH (06:08)
[2020-04-04] MEDS ORDERED: IPRATROPIUM/ALBUTEROL 3 ML VIAL NEB ONE (07:34)
[2020-04-04] MEDS ORDERED: BUDESONIDE NEBS 0.5 MG/2 ML INH NEB ONE (07:56)
[2020-04-04] MEDS: IPRATROPIUM/ALBUTEROL 3 ML VIAL INH SCH ×2 (07:57→12:37)
[2020-04-04] MEDS: BUDESONIDE NEBS 0.5 MG/2 ML INH NEB SCH (07:57)
--- NOTE | 2020-04-04 08:09 | PN ---
SUPERVISING PHYSICIAN: Perez Zelaya MD DATE: 04/03/20 SUBJECTIVE: The patient seems feeling okay, not having any distress. He is maintaining his O2 saturations with nasal cannula. No complaints of nausea, vomiting, diarrhea or constipation or any abdominal pain. No chest pains. OBJECTIVE: VITAL SIGNS: Temperature 97.7, pulse 64, blood pressure 113/68, respirations 16, saturation 94% on 2 liters nasal cannula. GENERAL: The patient is resting comfortably in no acute distress. He is alert. CHEST: Clear throughout, but significantly diminished towards the bilateral bases. I am not hearing any rhonchi or wheezing at this point. ABDOMEN: Soft, nontender. Positive bowel sounds. EXTREMITIES: No cyanosis, clubbing or edema. NEUROLOGIC: Alert and oriented times three. LABORATORY: White count 5,400, hemoglobin 13.7, hematocrit 38.8, platelet count 420,000. Differential does show a left shift with no bands currently. Chemistries show normal electrolytes. Creatinine 0.69. Liver functions still show elevated AST/ALT and C-reactive protein down to 12.6. Hepatitis panel is pending. RADIOLOGY: Chest x-ray this morning per radiologic interpretation shows stable bilateral pulmonary infiltrates with developing small left sided pleural effusion. Ultrasound of gallbladder and liver pending to further assess his elevated liver enzymes. ASSESSMENT: 1. Bilateral pneumonia secondary to COVID pneumonitis with hypoxia. 2. Elevated liver enzymes, etiology uncertain. 3. History of gastroesophageal reflux disease. 4. History of hypertension. 5. History of cardiovascular disease with previous stent placements. PLAN: We will continue current treatment for the pneumonia with antibiotic coverage to including azithromycin and Rocephin. I have also put him on some Pulmicort. He is on Decadron. I did not put him on Remdesivir since he is negative for COVID, but treating him fairly aggressively considering that he had a recent COVID infection. He is also on DuoNeb treatments, Protonix and Align. I resumed his home medications. We will follow his labs. Until the patient can transition to outpatient management, we will continue to monitor and treat as needed. #[id number] [facility]
[2020-04-04] MEDS: DEXAMETHASONE INJ 10 MG/ML VIAL IV SCH (09:50)
[2020-04-04] MEDS: ATENOLOL 25 MG TAB PO SCH (09:50)
[2020-04-04] MEDS: BIFIDOBACTERIUM INFANTIS 4 MG CAP PO SCH (09:50)
[2020-04-04] MEDS: LISINOPRIL 10 MG TAB PO SCH (09:50)
[2020-04-04] MEDS: ASPIRIN (CHEWABLE) 81 MG TAB PO SCH (09:50)
[2020-04-04] MEDS: SODIUM CHLORIDE 0.9% (FLUSH) 10 ML SYG IV PRN ×2 (09:58→19:57)
[2020-04-04] MEDS: SIMVASTATIN 20 MG TAB PO SCH ×2 (11:29→19:57)
[2020-04-04] MEDS: NON-FORMULARY MEDICATION 1 EA MIS (Lisinopril [Lisinopril] 20 MG) PO SCH (11:30)
[2020-04-04] MEDS: DEXAMETHASONE INJ 4 MG/ML VIAL IV SCH (11:30)
[2020-04-04] MEDS: NON-FORMULARY MEDICATION 1 EA MIS (Atenolol [Tenormin] 50 MG) PO SCH (11:31)
--- NOTE | 2020-04-04 14:33 | PN ---
SUPERVISING PHYSICIAN: Cl Sorenson MD DATE: 04/04/20 SUBJECTIVE: The patient is laying in bed. He speaks minimal Mos[place], but he answers simple yes/no questioning. He denies chest pain and has some shortness of breath. OBJECTIVE: VITAL SIGNS: Temperature 97.8, heart rate 60, blood pressure 125/68, respiratory rate 16, O2 saturation 93% on 3 liters nasal cannula. RESPIRATORY: Diminished breath sounds throughout. CARDIAC: Regular rate and rhythm. NEUROLOGIC: Awake, alert. LABORATORY: WBCs 9,500, hemoglobin 12.4, hematocrit 34.8. He has a left shift on his differential. Fibrinogen 567, D-dimer 3,220. Electrolytes are basically within normal limits with the exception of his calcium is slightly low at 8.3. BUN 18, creatinine 0.69. AST 82, ALT 180, alkaline phosphatase 57, LD 151, creatinine kinase 20. C-reactive protein 5.4. SARS serology is 59.7. Preliminary blood cultures show no growth after 48 hours. All other labs and films have been reviewed via the EMR. ASSESSMENT: 1. Bilateral pneumonia secondary to COVID pneumonitis with hypoxia. 2. Elevated liver enzymes, etiology uncertain. 3. History of gastroesophageal reflux disease. 4. Hypertension. 5. History of cardiovascular disease with previous stent placements. PLAN: We will continue present supportive care. Due to his continued COVID-19 symptoms as well as elevated SARS serology, we will place the patient in isolation. Prior to his discharge, we will need an ambulation study. I have also added Mucinex and encouraged good pulmonary hygiene. We will continue to monitor the patient closely and follow as needed. #[id number] [facility]
[2020-04-04] MEDS ORDERED: ALBUTEROL INHALER 64 PUFF/8GM INH ONE (15:46)
[2020-04-04] MEDS ORDERED: ALBUTEROL INHALER 64 PUFF/8GM INH PRN (16:01)
[2020-04-04] MEDS: ALBUTEROL INHALER 64 PUFF/8GM INH SCH ×2 (16:11→21:00)
[2020-04-04] MEDS: cefTRIAXone SODIUM 1 GM in SODIUM CHL 0.9% 50ML MIN-BAG+ 50 ML IVPB SCH (16:15)
[2020-04-04] MEDS: AZITHROMYCIN IV 500 MG in SODIUM CHLORIDE 0.9% 250ML 250 ML IVPB SCH (16:41)
[2020-04-04] MEDS ORDERED: SIMVASTATIN 20 MG TAB ONE (19:34)
[2020-04-04] MEDS ORDERED: guaiFENesin ER TAB 600 MG TAB ONE (19:34)
[2020-04-04] MEDS: guaiFENesin ER TAB 600 MG TAB PO SCH (19:57)
[2020-04-05] MEDS ORDERED: PANTOPRAZOLE SODIUM TAB 40 MG PO ONE (04:40)
[2020-04-05] MEDS: PANTOPRAZOLE SODIUM TAB 40 MG PO SCH (05:12)
[2020-04-05] MEDS: ENOXAPARIN SODIUM 80 MG/0.8 ML SYG SUBCU SCH ×2 (05:12→16:13)
--- NOTE | 2020-04-05 07:22 | RAD ---
EXAM DESCRIPTION: Chest,1 View CLINICAL HISTORY: 69 years Male, covid PNA COMPARISON: April 03, 2020 TECHNIQUE: AP portable chest. FINDINGS: Portable single upright view of the chest shows slightly improved inspiration in comparison to previous study. Patchy peripheral ill-defined infiltrates in the upper to mid lung field on the left and at the lateral lung base on the right are little changed from prior study. New areas of consolidation not apparent. The apical region on the left and the medial base and remainder of the right lung remain clear. Heart size is normal with normal vascularity and mildly tortuous aorta. No significant pleural effusions. IMPRESSION: Slightly improved inspiration with patchy subsegmental peripheral infiltrates mid lung field on the left and lateral base on the right, little changed from two days earlier. Electronically signed by: Mars Bray MD 04/05/2020 7:21 AM CDT
[2020-04-05] MEDS: ALBUTEROL INHALER 64 PUFF/8GM INH SCH ×4 (07:45→20:58)
[2020-04-05] MEDS: LISINOPRIL 10 MG TAB PO SCH (09:53)
[2020-04-05] MEDS: DEXAMETHASONE INJ 10 MG/ML VIAL IV SCH (09:54)
[2020-04-05] MEDS: ASPIRIN (CHEWABLE) 81 MG TAB PO SCH (09:54)
[2020-04-05] MEDS: ATENOLOL 25 MG TAB PO SCH (09:54)
[2020-04-05] MEDS: guaiFENesin ER TAB 600 MG TAB PO SCH ×2 (09:54→20:40)
[2020-04-05] MEDS: BIFIDOBACTERIUM INFANTIS 4 MG CAP PO SCH (12:10)
[2020-04-05] MEDS: AZITHROMYCIN IV 500 MG in SODIUM CHLORIDE 0.9% 250ML 250 ML IVPB SCH (16:12)
[2020-04-05] MEDS: cefTRIAXone SODIUM 1 GM in SODIUM CHL 0.9% 50ML MIN-BAG+ 50 ML IVPB SCH (16:12)
[2020-04-05] MEDS: IV SET AND CAP CHANGE INJ INJ SCH (16:13)
--- NOTE | 2020-04-05 19:36 | PN ---
SUPERVISING PHYSICIAN: Cl Sorenson MD DATE: 04/05/20 SUBJECTIVE: The patient is sitting on the side of the bed. He denies shortness of breath or chest pain, no nausea or vomiting, constipation. He did complain of continued weakness but it is improving. OBJECTIVE: VITAL SIGNS: Temperature 97.6, heart rate 71, blood pressure 131/74, respiratory rate 18, O2 saturation 93% on 1.5 liters nasal cannula. RESPIRATORY: Diminished breath sounds throughout. CARDIAC: Regular rate and rhythm. NEUROLOGIC: Awake, alert and oriented x3. LABORATORY: WBCs 9,1, hemoglobin 12.5, hematocrit 36.3. Fibrinogen 498, D- dimer 2,360. Electrolytes are basically within normal limits with the exception of his calcium is slightly low at 8.1. AST 46, ALT 140, C-reactive protein is 2.8. Preliminary blood cultures show no growth at 3 days. Chest x-ray has slightly improved inspiration with patchy subsegmental peripheral infiltrates in mid lung mooney on the left and lateral base on the right, little change from 2 days earlier. All other labs and films have been reviewed via the EMR. ASSESSMENT: 1. Bilateral pneumonia secondary to COVID pneumonitis with hypoxia. 2. Elevated liver enzymes, etiology uncertain, improving. 3. History of gastroesophageal reflux disease. 4. Hypertension. 5. History of cardiovascular disease with previous stent placements. PLAN: We will continue present supportive care. I will again repeat his Covid lab for in the morning and try to wean him off his oxygen. If we are unable to wean him off oxygen, he will need an ambulation study as he may need to go home on oxygen. Otherwise, we will continue to monitor the patient closely and follow as needed. [facility][id number] [facility]
[2020-04-05] MEDS: SODIUM CHLORIDE 0.9% (FLUSH) 10 ML SYG IV PRN (20:40)
[2020-04-05] MEDS: SIMVASTATIN 20 MG TAB PO SCH (20:40)
[2020-04-06] MEDS: ENOXAPARIN SODIUM 80 MG/0.8 ML SYG SUBCU SCH ×2 (05:10→16:40)
[2020-04-06] MEDS: PANTOPRAZOLE SODIUM TAB 40 MG PO SCH (05:10)
[2020-04-06] MEDS: DEXAMETHASONE INJ 10 MG/ML VIAL IV SCH (07:49)
[2020-04-06] MEDS: BIFIDOBACTERIUM INFANTIS 4 MG CAP PO SCH (07:51)
[2020-04-06] MEDS: ASPIRIN (CHEWABLE) 81 MG TAB PO SCH (07:51)
[2020-04-06] MEDS: LISINOPRIL 10 MG TAB PO SCH (07:51)
[2020-04-06] MEDS: guaiFENesin ER TAB 600 MG TAB PO SCH ×2 (07:51→21:02)
[2020-04-06] MEDS: ATENOLOL 25 MG TAB PO SCH (07:51)
[2020-04-06] MEDS: ALBUTEROL INHALER 64 PUFF/8GM INH SCH ×4 (08:00→21:11)
[2020-04-06] MEDS: cefTRIAXone SODIUM 1 GM in SODIUM CHL 0.9% 50ML MIN-BAG+ 50 ML IVPB SCH (15:45)
[2020-04-06] MEDS: AZITHROMYCIN IV 500 MG in SODIUM CHLORIDE 0.9% 250ML 250 ML IVPB SCH (16:40)
--- NOTE | 2020-04-06 19:31 | PN ---
SUPERVISING PHYSICIAN: Cl Sorenson MD DATE: 04/06/20 SUBJECTIVE: The patient is doing well. He is still requiring some oxygen as he does desat into the 80s with ambulation. He has not had any chest pain, nausea or vomiting or diarrhea. OBJECTIVE: VITAL SIGNS: Temperature 97.6, heart rate 71, blood pressure 131/74, respiratory rate 18, O2 saturation 93% on 1.5 liters nasal cannula. RESPIRATORY: Diminished breath sounds throughout. CARDIAC: Regular rate and rhythm. NEUROLOGIC: Awake, alert and oriented x3. LABORATORY: White count stable at 10,600, hemoglobin 12.7, cyrftokbbi51.4, platelet count 159,000, differential shows to be without a left shift. Coagulation studies showed D-dimer down to 2100, fibrinogen 468. Chemistries showed normal electrolytes. Creatinine 0.64, calcium 8.2, liver functions all within normal limits except for elevated ALT of 120. AST normal at 38. Alkaline phosphatase normal at 53. C-reactive protein down to 2.7. Hepatitis A and B and C panel was all moderately reactive. Blood cultures remained negative for 4 days. RADIOLOGY: No new radiographic studies today. ASSESSMENT: 1. Bilateral pneumonia secondary to COVID pneumonitis with hypoxia. 2. Elevated liver enzymes, etiology uncertain, improving. 3. History of gastroesophageal reflux disease. 4. Hypertension. 5. History of cardiovascular disease with previous stent placements. PLAN: We will continue with Covid labs and wean oxygen as possible. I anticipate him going home tomorrow as he is doing pretty good. Will work to get ambulation studies continued and if he needs oxygen, secure that before he is discharged. Until we can transition him to outpatient management, we will continue to monitor and treat as needed, #[id number] [facility]
[2020-04-06] MEDS: SIMVASTATIN 20 MG TAB PO SCH (21:02)
[2020-04-07] MEDS: ENOXAPARIN SODIUM 80 MG/0.8 ML SYG SUBCU SCH (05:07)
[2020-04-07] MEDS: PANTOPRAZOLE SODIUM TAB 40 MG PO SCH (05:08)
--- NOTE | 2020-04-07 07:26 | RAD ---
EXAM DESCRIPTION: Chest,1 View CLINICAL HISTORY: 69 years Male, COVID PNA COMPARISON: April 05, 2020 TECHNIQUE: AP portable chest. FINDINGS: Lordotic positioning with patchy bilateral mid and lower lung field infiltrates are slightly worse from previous study with small lung volumes again noted. Cardiac silhouette and mediastinum are accentuated by the lordotic positioning. Overall appearance suggests slight progression of infiltrative changes on each side in comparison to study two days earlier. IMPRESSION: Persistent patchy predominantly peripheral mid and lower lung field infiltrative changes bilaterally with very minimal progression from two days earlier. Pattern is consistent with stated history of Covid pneumonitis. Electronically signed by: Mars Bray MD 04/07/2020 7:24 AM CDT
[2020-04-07] MEDS: ALBUTEROL INHALER 64 PUFF/8GM INH SCH ×2 (08:20→13:40)
[2020-04-07] MEDS: ATENOLOL 25 MG TAB PO SCH (08:37)
[2020-04-07] MEDS: LISINOPRIL 10 MG TAB PO SCH (08:37)
[2020-04-07] MEDS: BIFIDOBACTERIUM INFANTIS 4 MG CAP PO SCH (08:37)
[2020-04-07] MEDS: guaiFENesin ER TAB 600 MG TAB PO SCH (08:37)
[2020-04-07] MEDS: DEXAMETHASONE INJ 10 MG/ML VIAL IV SCH (08:38)
[2020-04-07] MEDS: ASPIRIN (CHEWABLE) 81 MG TAB PO SCH (08:38)
[2020-04-07 13:06] VITALS: BP 120/73; TEMP 98.1; O2SAT 95
--- NOTE | 2020-04-13 09:23 | DS ---
SUPERVISING PHYSICIAN: Cl Sorenson MD ADMISSION DIAGNOSIS: 1. Bilateral pneumonia secondary to COVID pneumonitis with hypoxia. 2. Elevated liver enzymes, etiology uncertain. 3. History of gastroesophageal reflux disease. 4. History of hypertension. 5. History of cardiovascular disease with previous stent placements. DISCHARGE DIAGNOSIS: 1. Bilateral pneumonia secondary to COVID pneumonitis with hypoxia. 2. Elevated liver enzymes, etiology uncertain, improving. 3. History of gastroesophageal reflux disease. 4. Hypertension. 5. History of cardiovascular disease with previous stent placements. REASON FOR HOSPITALIZATION: Mr. Hernández is a 69-year-old [id number] male patient who presented to the Emergency Room last night with some shortness of breath and a cough. He had tested COVID positive two weeks previously in the Emergency Room and was treated at home. He endorses over the last week which cough has gotten worse including shortness of breath. His initial Emergency Room visit last week showed his O2 saturations were acceptable as well as ambulation was unchanged. He was discharged home with some cough medicine. He denies any chest pains, swelling, syncope. He does report some intermittent fevers as well as his son was admitted to the hospital here with COVID pneumonitis and hypoxia. His initial workup in the Emergency Room showed his white count was 6,800, hemoglobin 13.5, hematocrit 38.7, lymphocytes low, no left shift. Coagulation studies showed D-dimer greater than 5,000. PTT 24.8. Chemistries showed sodium 131 with normal electrolytes. Otherwise, creatinine was 0.7. Liver functions show did elevation of AST and ALT, but normal bilirubin. LDH was elevated. Troponin within normal limits. C-reactive protein 14.7. BNP slightly elevated at 119. Respiratory panel was completed showed he was negative for all viral and bacterial targets as tested including COVID and influenza. Chest x-ray in the ER showed interval development since 03/26/20 of bilateral perihilar ground glass opacities in both lungs suspicious for COVID pneumonia. Due to the elevated D-dimer, he had a CT of the chest with no evidence of pulmonary embolus as noted. Again, there was note of focal areas of ground glass opacities, bilateral upper and lower lungs. His vital signs initially in the Emergency Room showed saturation 86% on room air, blood pressure stable at 142/79, heart rate 75, afebrile at 98.6. Given the findings on CT of the chest indicating bilateral pneumonia and recent COVID-19 infection, there is concern for COVID pneumonia now with the patient showing some hypoxia on room air. Therefore, he is going to be admitted for further treatment and evaluation. He was admitted in stable condition. LABORATORY: White count at discharge was 10,600, hemoglobin 12.7, hematocrit 36.4, platelet count 459,000. Differential did show a left shift. Coagulation studies showed initial D-dimer greater than 5,000 and at discharge was 1390. Fibrinogen was down from 735 to 468 at time of discharge. PTT was normal. Chemistries showed normal electrolytes at discharge with creatinine 0.64, calcium 8.2. Liver function within normal limits except for elevated ALT at 92. C-reactive protein was down to 3.0 from initial of 14.7 on admission. MICROBIOLOGY: Hepatitis panel was nonreactive for A, B and C, both antigen and antibodies. Please see that report for details. He had a SARS serology panel which was elevated at 59.7 indicating it was reactive and recent prior infection. Blood cultures were negative after 5 days. Respiratory panel on admission was negative for COVID as well as influenza and all other bacterial and viral targets. RADIOLOGY: He had a CT of the chest initially on admission and per radiologic interpretation showed no evidence of pulmonary embolism or significant evidence for thoracic or aortic dissection. There were subpleural ground glass opacities bilaterally in upper and lower lungs with some features of COVID-19. Please see that report for details. Final chest x-ray on 04/07/20 prior to discharge per radiologic interpretation showed persistent patchy predominantly peripheral, mid and lower lung field infiltrative changes bilaterally with minimal progression, pattern consistent with history of COVID pneumonitis. 12-lead EKG showed normal sinus rhythm without ST or T-wave changes indicating acute ischemia. HOSPITAL COURSE: Mr. Hernández was admitted for bilateral pneumonia with previous COVID infection and was treated with albuterol, Decadron, Levaquin, azithromycin, ceftriaxone, Pulmicort. Given that he did not have active infection, he was not started on Remdesivir. His vital signs showed improvement and he was maintaining 95% on 2 liters nasal cannula at discharge and had shown his labs were returning to baseline. It was felt he had clinically improved well enough to continue with outpatient management. PLAN: Mr. Hernández was discharged on 04/07/20 to continue with treatment as directed and to followup with [facility]. He was to call and get an appointment. He is to resume his normal diet as tolerated and activity as tolerated. Medications prescribed on discharge included: 1. Albuterol inhaler 2 puffs q.4h. as needed, #1 inhaler, no refills. 2. Align 4 mg daily, #30. 3. Decadron 6 mg daily for 5 days. 4. Eliquis 5 mg twice daily, #50, no refills. 5. Cefdinir 300 mg twice daily, #10, no refills. Arrangements were made for home O2 through [facility]. He was to wear oxygen as directed through nasal cannula with arrangements made for oxygen delivery at home. He is to followup for his oxygen needs at the clinic. CONDITION ON DISCHARGE: Stable and improving. DISPOSITION: The patient was discharged home. #[id number] [facility]
== END 2020-04-07 16:29 | disposition home or self-care (01) | DRG 195 ==
LOC: ER 11:35 → UNDOADMOB 15:56 → MS 15:56 → OBSVTOIN 16:33 → MS 16:33
PROVIDERS: ADMIT Nurse Practitioner Family; ATTEND Nurse Practitioner Family
PROC: B32T1ZZ Computerized Tomography (CT Scan) of Left Pulmonary Artery using Low Osmolar Contrast (ICD-10-PCS; principal; 2020-04-02)
PROC: B32S1ZZ Computerized Tomography (CT Scan) of Right Pulmonary Artery using Low Osmolar Contrast (ICD-10-PCS; 2020-04-02)
DX: J18.9 Pneumonia, unspecified organism (principal); R09.02 Hypoxemia; R74.8 Abnormal levels of other serum enzymes; K21.9 Gastro-esophageal reflux disease without esophagitis; I10 Essential (primary) hypertension; I25.10 Atherosclerotic heart disease of native coronary artery without angina pectoris; Z95.5 Presence of coronary angioplasty implant and graft; B94.8 Sequelae of other specified infectious and parasitic diseases; Z86.19 Personal history of other infectious and parasitic diseases; Z79.82 Long term (current) use of aspirin; Z79.899 Other long term (current) drug therapy